=== PATIENT | female | born 1990 | race Hispanic/Latino ===

== ENCOUNTER 2022-07-05 16:04 | Emergency (ER) | payer SELFPAY | END 2022-07-05 18:30 | disposition home or self-care (01) | LOC: ERS 16:04 | DX: R05.1 Acute cough (principal); R06.2 Wheezing | CPT/HCPCS: 71045 ==

== ENCOUNTER 2023-08-14 07:03 | Emergency (ER) | payer SELFPAY ==
[2023-08-14] MEDS ORDERED: Acetaminophen 500 MG TAB ONE (07:36)
[2023-08-14] MEDS ORDERED: Ondansetron ODT 4 MG TAB ONE (07:36)
[2023-08-14 08:02] LABS: Pregnancy Test - Urine (BHCG) Negative (Negative)
[2023-08-14 08:06] LABS: Pregu Control Background? CLEAR/WHITE (CLR/WHITE); Pregu Control Bar Appear? YES (CONTROL BAR); Specific Gravity 1.022 (1.002-1.036)
[2023-08-14] MEDS ORDERED: Ondansetron PF 4 MG/2 ML Vial ONE (08:06)
== END 2023-08-14 09:28 | disposition home or self-care (01) ==
LOC: ERS 07:03
DX: H66.92 Otitis media, unspecified, left ear (principal); R11.2 Nausea with vomiting, unspecified; R03.0 Elevated blood-pressure reading, without diagnosis of hypertension
CPT/HCPCS: 81025; 87804; 96361; 96374; J2405; Q0162

== ENCOUNTER 2023-08-16 07:07 | Emergency (ER) | payer SELFPAY ==
[2023-08-16] MEDS ORDERED: Ketorolac Tromethamine 30 MG (1 mL) VIAL ONE (08:04)
[2023-08-16] MEDS ORDERED: Ondansetron ODT 4 MG TAB ONE (08:05)
[2023-08-16] MEDS ORDERED: Dexamethasone 10 MG/ML VIAL ONE ×2 (08:18→08:20)
[2023-08-16] MEDS ORDERED: Ipratropium/Albuterol 3 ML NEB ONE (08:26)
[2023-08-16 08:37] LABS: Bilirubin Negative (Negative); Blood, Urine 3+ (Negative); CAUTI Indications for Culture Dysuria,urgency,freq; Clarity Clear (Clear); Glucose, Urine (Dipstick) Normal (Negative); Ketone, Urine Negative (Negative); Leukocyte Negative Leu/uL (Negative); Nitrite Negative (Negative); Protein, Urine (Dipstick) 10 mg/dL (Neg-Trace); RBC/HPF Greater than 50 HPF (0-3); Specific Gravity, Urine 1.021 (1.002-1.036); Squamous Epithelial 0-3 HPF (0-3); Urobilinogen Normal mg/dL (Less than 2); pH, Urine 5.5 (5.0-9.0)
[2023-08-16 08:51] LABS: Bacteria/HPF 1+ HPF (None Seen)
[2023-08-16 08:52] LABS: Urine Culture Reflex No No
[2023-08-16 08:57] LABS: SARS-CoV-2 NAA Rapid Test DETECTED (NotDetected)
== END 2023-08-16 10:05 | disposition home or self-care (01) ==
LOC: ERS 07:07
DX: U07.1 COVID-19 (principal)
CPT/HCPCS: 71045; 81001; 94640; 96372; J1100; J1885; J7620; Q0162